=== PATIENT | female | born 1975 | race Caucasian/White ===

== ENCOUNTER 2016-11-01 07:26 | Emergency (ER) | payer OTHER ==
[2016-11-01 07:38] VITALS: BP 96/49; PULSE 98; TEMP 98.1; BMI 21.9
--- NOTE | 2016-11-01 08:22 | PDOC ---
History of Present Illness - General Chief Complaint: Respiratory Stated Complaint: COUGHING Time Seen by Provider: 11/01/16 08:15 History Source: Patient Exam Limitations: No Limitations - History of Present Illness Initial Comments: 11/01/16 08:30 Patient came with with complaints of cough that is worsening this week. States suffers badly from seasonal ALLERGIES and is been taking Zyrtec with decongestant with minimal resolved. Denies fever, denies phlegm production but states sinuses are becoming more congested and suffers from headaches now. Timing/Duration: reports: just prior to arrival, getting worse Severity: reports: mild, moderate Possible Cause: Yes: allergen exposure Associated Symptoms: reports: chest pain/soreness, cough, facial pain, lightheadedness. denies: dizziness, fever/chills Past History - Travel Traveled outside of the country in the last 30 days: No Close contact w/someone who was outside of country & ill: No - Past Medical History Allergies/Adverse Reactions: Allergies Allergy/AdvReac Type Severity Reaction Status Date / Time No Known Allergies Allergy Verified 11/01/16 07:35 Home Medications: Ambulatory Orders Albuterol Sulfate [Proventil HFA Inhaler -] 1 - 2 inh PO QID #1 inhaler Loratadine [Claritin] 10 mg PO DAILY #30 tablet 11/01/16 Prednisone [Deltasone -] 20 mg PO BID #8 tablet 11/01/16 - Surgical History Abdominal Surgery: Yes - Psycho/Social/Smoking Cessation Hx Anxiety: No Suicidal Ideation: No Smoking History: Never smoked Have you smoked in the past 12 months: No Information on smoking cessation initiated: No Hx Alcohol Use: No Drug/Substance Use Hx: No Substance Use Type: None Respiratory Specific PMHX - Complaint Specific PMHX Bronchitis: No Pneumonia: No Review of Systems - Review of Systems Able to Perform ROS?: Yes Is the patient limited Palauan proficient: Yes Constitutional: Yes: Symptoms Reported, See HPI, Malaise. No: Chills, Fever HEENTM: Yes: Symptoms Reported, See HPI, Nose Pain, Nose Congestion. No: Difficulty Swallowing Respiratory: Yes: Symptoms reported, See HPI, Cough, Shortness of Breath, Wheezing Musculoskeletal: No: Symptoms Reported Integumentary: No: Symptoms Reported All Other Systems: Reviewed and Negative *Physical Exam - Vital Signs Last Vital Signs Temp Pulse Resp BP Pulse Ox 98.1 F 98 H 18 96/49 100 11/01/16 07:36 11/01/16 07:36 11/01/16 07:36 11/01/16 07:36 11/01/16 07:36 - Physical Exam General Appearance: Yes: Nourished, Appropriately Dressed, Apparent Distress, Mild Distress HEENT: positive: Normal ENT Inspection, Normal Voice, TMs Normal (congested but landmarks easily visualized), Pharynx Normal, Rhinorrhea, Sinus Tenderness. negative: Tonsillar Exudate Neck: positive: Supple. negative: Lymphadenopathy (R), Lymphadenopathy (L) Respiratory/Chest: negative: Lungs Clear (course inspiratory and expiratory breath sounds with faint wheeze, tight) Cardiovascular: positive: Regular Rate Extremity: positive: Normal Capillary Refill, Normal Inspection Integumentary: positive: Dry, Warm, Pale Neurologic: positive: commander internal affairs II-XII NML intact, Fully Oriented, Alert, Normal Mood/ Affect, Normal Response, Motor Strength 5/5 Medical Decision Making - Medical Decision Making 11/01/16 13:35 Patient much improved after 3 DuoNeb's, and prednisone. States feels better and is ready for discharge *DC/Admit/Observation/Transfer Diagnosis at time of Disposition: Allergic rhinitis Qualifiers: Allergic rhinitis trigger: other Allergic rhinitis seasonality: unspecified seasonality Qualified Code(s): J30.89 - Other allergic rhinitis - Discharge Dispostion Disposition: HOME Condition at time of disposition: Stable Admit: No - Prescriptions Prescriptions: Loratadine [Claritin] 10 mg PO DAILY #30 tablet Prednisone [Deltasone -] 20 mg PO BID #8 tablet Albuterol Sulfate [Proventil HFA Inhaler -] 1 - 2 inh PO QID #1 inhaler - Patient Instructions Printed Discharge Instructions: DI for Allergic Rhinitis Additional Instructions: Rest, drink lots of fluids: Teas, water, soups Saltwater gargles. Consider humidifier in room at night Steamy showers/seem to face break up mucus Avoid contact with allergens, exposure to pollens, close windows on a windy day Lots of handwashing and good hygiene Continue [id number] medications for symptomatic relief- may use allergic eyedrops for itching I Continue antihistamines daily until pollen season is over; Zyrtec, Claritin, Magda during the daytime and Benadryl at nighttime as will make sleepy Tylenol or Motrin for fever and pain Continue Albuterol Nebs 4 times day for next 2 days then as needed Prednisone 40mg daily for next 4 days Followup with private physician in one to 2 days as needed Consider following up with an karate teacher/maintenance mechanic helper for skin testing and possible allergy shots Return to emergency department for worsened symptoms, fevers, dehydration - Post Discharge Activity Work/School Note: Back to Work, Parent(s) Back to Work Note
[2016-11-01] MEDS ORDERED: predniSONE 20 MG TABLET (UD) PO ONE (09:11)
[2016-11-01] MEDS ORDERED: IBUPROFEN 600 MG TABLET (FP) PO ONE ×2 (09:11→09:17)
[2016-11-01] MEDS ORDERED: predniSONE 20 MG TABLET (UD) ONE (09:13)
== END 2016-11-01 10:06 | disposition home or self-care (01) ==
LOC: JERFT 07:26
PROC: 3E0F7GC Introduction of Other Therapeutic Substance into Respiratory Tract, Via Natural or Artificial Opening (ICD-10-PCS; principal; 2016-11-01)
PROC: 3E0F7GC Introduction of Other Therapeutic Substance into Respiratory Tract, Via Natural or Artificial Opening (ICD-10-PCS; 2016-11-01)
PROC: 3E0F7GC Introduction of Other Therapeutic Substance into Respiratory Tract, Via Natural or Artificial Opening (ICD-10-PCS; 2016-11-01)
DX: J30.89 Other allergic rhinitis (principal)
CPT/HCPCS: 84703; 94640; 99281-25

== ENCOUNTER → 2017-07-08 | Day surgery (SDC) | payer OTHER ==
--- NOTE | 2017-07-08 12:40 | OP ---
DATE OF OPERATION: 07/08/2017 PREOPERATIVE DIAGNOSIS: Abnormal right mammography. POSTOPERATIVE DIAGNOSIS: Abnormal right mammography. PROCEDURE: Right stereotactic needle biopsy with clips. SURGEON: Crow Carlin MD ANESTHESIA: Local. COMPLICATIONS: None. This was a sterile procedure including clips. INDICATIONS FOR PROCEDURE: Patient had a screening mammogram as a baseline that noted loosely clustering white calcifications in the subareolar right breast slightly outer, and a recommendation made for needle biopsy for diagnosis. The procedure was discussed with her including the need for a clip. PROCEDURE IN DETAIL: Patient was brought to [facility]. Rylan Trejo, laid prone on the OR table. Using the cranial approach, the calcifications in the subareolar slightly outer, right breast, were identified. A sterile prep was obtained. A target was chosen, there was a positive stroke margin. Then, using betadine and 1% lidocaine, a petKeyCAPTCHA Suros device was used to take several cores from this area. Cores with calcifications within them. These were handled with usual calcification protocol. The clip was deployed in the area. Hemostasis was ensured with direct pressure. The incision was closed with Steri-Strips. She tolerated the procedure well and left the breast imaging center in good condition. CROW CARLIN M.D. [id number]
--- NOTE | 2017-07-10 15:53 | PATH ---
Surgical Pathology Report Patient Name: ARNALDO MADDOX [facility]. Rec. #: [id number] /Age/Gender: 1975 (Age: 42) / F Account: [id number] Location: [facility] Taken: 07/08/2017 Received: 07/08/2017 Reported: 07/10/2017 Physicians: Breonna Soto M.D. Specimen(s) Received A: RIGHT BREAST WITH CALCIFICATIONS STEREOTACTIC BIOPSY B: RIGHT BREAST WITHOUT CALCIFICATIONS STEREOTACTIC BIOPSY Clinical History Nonpalpable lesion Mammographic findings: Microcalcification, suspicious Final Diagnosis A. BREAST, RIGHT, WITH CALCIFICATIONS, STEREOTACTIC BIOPSY: BENIGN BREAST TISSUE SHOWING FIBROCYSTIC CHANGES INCLUDING MICROCYST FORMATION WITH APOCRINE METAPLASIA AND STROMAL FIBROSIS. FEW CALCIFICATIONS ARE PRESENT IN ASSOCIATION WITH CYST CONTENTS. B. BREAST, RIGHT, WITHOUT CALCIFICATIONS, STEREOTACTIC BIOPSY: BENIGN BREAST TISSUE SHOWING FIBROCYSTIC CHANGES INCLUDING CYSTIC APOCRINE METAPLASIA AND STROMAL FIBROSIS. FEW CALCIFICATIONS ARE PRESENT IN ASSOCIATION WITH CYST CONTENTS. Electronically Signed Deepthi Lacey M.D. Gross Description A. Received in formalin labeled "right breast with calcifications," are 3 macias-yellow, cylindrical portions of fibroadipose tissue ranging from 1.4-2.1 cm in length and averaging 0.3 cm in diameter. The specimens are submitted in toto in one cassette. B. Received in formalin labeled "right breast without calcifications," are 4 macias-yellow, cylindrical portions of fibroadipose tissue ranging from 1.3-2.0 cm in length and averaging 0.2 cm in diameter. The specimens are submitted in toto in one cassette. Time to formalin fixation: 5 minutes Total formalin fixation time: Approximately 8 hours. 07/08/2017 [facility]07/08/2017
== END | disposition home or self-care (01) ==
LOC: FMAMMOTONE 08:39
PROVIDERS: ATTEND Surgery
PROC: 0HBT3ZX Excision of Right Breast, Percutaneous Approach, Diagnostic (ICD-10-PCS; principal; 2017-07-08)
DX: N60.11 Diffuse cystic mastopathy of right breast (principal); N60.31 Fibrosclerosis of right breast; N64.89 Other specified disorders of breast; R92.8 Other abnormal and inconclusive findings on diagnostic imaging of breast
CPT/HCPCS: 19081; 87899; A4648

== ENCOUNTER 2018-01-08 20:38 | Emergency (ER) | payer SELFPAY ==
--- NOTE | 2018-01-08 20:45 | PDOC ---
Rapid Medical Evaluation Time Seen by Provider: 01/08/18 20:40 Medical Evaluation: Allergies Allergy/AdvReac Type Severity Reaction Status Date / Time No Known Allergies Allergy Verified 11/01/16 07:35 01/08/18 20:41 Pt. presents to the ED for a headache starting today. Pt states the pain started behind her L eye. The headache is made worse with light. Currently on her menstrual cycle. Exam: Pt wearing sunglasses. AAOx3, no gross neuro deficits Orders: IV insert, Urine Pt to proceed to the ED for further evaluation Discharge Disposition - Diagnosis Headache - Referrals - Patient Instructions - Post Discharge Activity
[2018-01-08 20:46] VITALS: BP 116/57; PULSE 82; TEMP 97.9; BMI 23.4
[2018-01-08] MEDS ORDERED: SUMATRIPTAN SUCCINATE 6 MG/0.5 ML VIAL SQ ONE (21:28)
[2018-01-08] MEDS ORDERED: SUMATRIPTAN SUCCINATE 6 MG/0.5 ML VIAL ONE (21:34)
--- NOTE | 2018-01-08 21:41 | PDOC ---
History of Present Illness - General Chief Complaint: Eye Problem Stated Complaint: HEADACHE, EYE PAIN Time Seen by Provider: 01/08/18 20:40 History Source: Patient, Gyn Used (foreign language interpreter# [id number]) Exam Limitations: Clinical Condition - History of Present Illness Initial Comments: 01/08/18 21:35 Patient with no significant past medical history present with complain of pain and redness to right eye for 3 days now headaches. Patient reported the pain started as mild pain behind her right eye which is progressively getting worse and she called her PCP and PCP could not see her until week's time. Patient did not take anything for her symptoms. Patient denies nausea vomiting, dizziness, loss of consciousness, spinning sensation, ear pain, fever or chills. Denies any other symptoms Timing/Duration: other (3 days) Past History - Past Medical History Allergies/Adverse Reactions: Allergies Allergy/AdvReac Type Severity Reaction Status Date / Time No Known Allergies Allergy Verified 11/01/16 07:35 Home Medications: Ambulatory Orders Ibuprofen [Advil -] 200 mg PO QID 01/08/18 Ketotifen Fumarate [Zaditor] 5 ml OP BID 5 Days #1 bottle 01/08/18 Sumatriptan Succinate [Imitrex] 25 mg PO TID PRN #12 tablet 01/08/18 COPD: No - Surgical History Abdominal Surgery: Yes - Suicide/Smoking/Psychosocial Hx Smoking History: Never smoked Have you smoked in the past 12 months: No Hx Alcohol Use: No Drug/Substance Use Hx: No Substance Use Type: None Review of Systems - Review of Systems Able to Perform ROS?: Yes Is the patient limited Syriac proficient: No Constitutional: No: Chills, Diaphoresis, Fever, Loss of Appetite, Malaise, Night Sweats, Weakness, Weight Stable, Unintentional Wgt. Loss, Unexplained wgt Loss, Other HEENTM: Yes: Eye Pain (right eye), Blurred Vision (right eye). No: Tearing, Recent change in vision, Double Vision, Cataracts, Ear Pain, Ocular Prothesis, Ear Discharge, Nose Pain, Nose Congestion, Tinnitus, Nose Bleeding, Hearing Loss , Throat Pain, Throat Swelling, Mouth Pain, Dental Problems, Difficulty Swallowing, Mouth Swelling, Other Respiratory: No: Cough, Orthopnea, Shortness of Breath, SOB with Exertion, SOB at Rest, Stridor, Wheezing, Productive cough, Hemoptysis, Other Cardiac (ROS): No: Chest Pain, Edema, Irregular Heart Rate, Lightheadedness, Palpitations, Syncope, Chest Tightness, Other ABD/GI: No: Abdominal Distended, Abd. Pain w/ defecation, Blood Streaked Bowels , Constipated, Diarrhea, Difficulty Swallowing, Nausea, Poor Appetite, Poor Fluid Intake, Rectal Bleeding, Vomiting, Indigestion, Abdominal cramping, Tarry Stools, Other Musculoskeletal: No: Back Pain, Gout, Joint Pain, Joint Swelling, Muscle Pain, Muscle Weakness, Neck Pain, Joint Stiffness, Other All Other Systems: Reviewed and Negative *Physical Exam - Vital Signs Last Vital Signs Temp Pulse Resp BP Pulse Ox 97.9 F 82 18 116/57 99 01/08/18 20:40 01/08/18 20:40 01/08/18 20:40 01/08/18 20:40 01/08/18 20:40 - Physical Exam Comments: 01/08/18 21:38 GENERAL: Well developed, well nourished. Awake and alert. No acute distress. HEENT: injected right conjunctiva are tearing Normocephalic, atraumatic. PERRLA, EOMI. No left conjunctival pallor. Sclera are non-icteric. Moist mucous membranes. Oropharynx is clear. NECK: Supple. Full ROM. No JVD. Carotid pulses 2+ and symmetric, without bruits. No thyromegaly. No lymphadenopathy. CARDIOVASCULAR: Regular rate and rhythm. No murmurs, rubs, or gallops. Distal pulses are 2+ and symmetric. PULMONARY: No evidence of respiratory distress. Lungs clear to auscultation bilaterally. No wheezing, rales or rhonchi. ABDOMINAL: Soft. Non-tender. Non-distended. No rebound or guarding. No organomegaly. Normoactive bowel sounds. MUSCULOSKELETAL Normal range of motion at all joints. No bony deformities or tenderness. No CVA tenderness. EXTREMITIES: No cyanosis. No clubbing. No edema. No calf tenderness. SKIN: Warm and dry. Normal capillary refill. No rashes. No jaundice. NEUROLOGICAL: Alert, awake, appropriate. Cranial nerves 2-12 intact. No deficits to light touch and temperature in face, upper extremities and lower extremities. No motor deficits in the in face, upper extremities and lower extremities. Normoreflexic in the upper and lower extremities. Normal speech. Toes are down- going bilaterally. Gait is normal without ataxia. PSYCHIATRIC: Cooperative. Good eye contact. Appropriate mood and affect. General Appearance: Yes: Nourished, Appropriately Dressed. No: Apparent Distress ED Treatment Course - ADDITIONAL ORDERS Additional order review: Laboratory Results 01/08/18 20:58 Urine HCG, Qual Negative Medical Decision Making - Medical Decision Making 01/08/18 21:40 Patient withhas past medical history presenting with complain of right eye redness and pain and headache for 3 days. Symptoms likely cluster headache and Imitrex 6 mg IM given for headache. Patient will be observed for 20 minutes before discharge on Imitrex and eyedrops with ophthalmology follow-up 01/08/18 22:24 Patient symptoms improved after Imitrex is medication and observation for 30 minutes. Patient with no more pain in the eye. Patient will be discharged home on Imitrex and eyedrops with ophthalmology follow-up *DC/Admit/Observation/Transfer Diagnosis at time of Disposition: Headache Qualifiers: Headache type: cluster Headache chronicity pattern: episodic headache Intractability: not intractable Qualified Code(s): G44.019 - Episodic cluster headache, not intractable - Discharge Dispostion Disposition: HOME Condition at time of disposition: Stable Decision to Admit order: No - Prescriptions Prescriptions: Ketotifen Fumarate [Zaditor] 5 ml OP BID 5 Days #1 bottle Sumatriptan Succinate [Imitrex] 25 mg PO TID PRN #12 tablet PRN Reason: headache - Referrals Referrals: Deric Awad MD [Non Staff, Medical] - - Patient Instructions Printed Discharge Instructions: Cluster Headache, DI for Cluster Headache Additional Instructions: take medication as prescribed. follow-up with ophthalmology as soon as possible Print Language: URDU - Post Discharge Activity
[2018-01-08] MEDS ORDERED: ONDANSETRON *ODT* 4 MG TABLET ONE (22:28)
[2018-01-08] MEDS ORDERED: ONDANSETRON *ODT* 4 MG TABLET SL ONE (22:31)
== END 2018-01-08 22:35 | disposition home or self-care (01) ==
LOC: JERFT 20:38
PROC: 3E023GC Introduction of Other Therapeutic Substance into Muscle, Percutaneous Approach (ICD-10-PCS; principal; 2018-01-08)
DX: G44.019 Episodic cluster headache, not intractable (principal)
CPT/HCPCS: 84703; 99281-25; Q0162

== ENCOUNTER 2020-03-27 15:48 | Emergency (ER) | payer SELFPAY ==
--- NOTE | 2020-03-27 15:53 | PDOC ---
Rapid Medical Evaluation Time Seen by Provider: 03/27/20 15:50 Medical Evaluation: Allergies Allergy/AdvReac Type Severity Reaction Status Date / Time No Known Allergies Allergy Verified 11/01/16 07:35 03/27/20 15:51 44 year old female no phmx complaining of chest pain and SOB. PE CTA RRR Plan EKG Labs Pt to precede to ED for further treatment
[2020-03-27 15:55] VITALS: BP 93/52; PULSE 75; TEMP 97.7; BMI 24.4
--- OUTSIDE RECORDS SUMMARY | 2020-03-27 16:20 | XMS ---
:1975 Author Organization [facility] Care Team Providers Name Role Phone PETER [employer] AND WATCH HANDS MOUNTER Unavailable PETER [employer] W[employer] HAND[employer] MOUNTER Unavailable PETER CL[employer] AND WATCH HANDS MOUNTER Unavailable PETER CLOCK AND WATCH HANDS MOUNTER Unavailable PETER CLOCK AND WATCH HANDS MOUNTER Unavailable OYEKOLA CANVAS MARKER Unavailable OYEKOLA CANVAS MARKER Unavailable OYEKOLA CANVAS MARKER Unavailable OYEKOLA CANVAS MARKER Unavailable Vilas DPM Unavailable Vilas DPM Unavailable SHASTA TALAVERA Unavailable Grullon Unavailable Re-disclosure Warning The records that you are about to access may contain information from federally- assisted alcohol or drug abuse programs. If such information is present, then the following federally mandated warning applies: This information has been disclosed to you from records protected by federal confidentiality rules (42 CFR part 2). The federal rules prohibit you from making any further disclosure of this information unless further disclosure is expressly permitted by the written consent of the person to whom it pertains or as otherwise permitted by 42 CFR part 2. A general authorization for the release of medical or other information is NOT sufficient for this purpose. The Federal rules restrict any use of the information to criminally investigate or prosecute any alcohol or drug abuse patient.The records that you are about to access may contain highly sensitive health information, the redisclosure of which is protected by Article 27-F of the [facility] [place] [facility] law. If you continue you may haveaccess to information: Regarding HIV / AIDS; Provided by facilities licensed or operated by the [facility] Office of Mental Health; or Provided by the [facility] Office for People With Developmental Disabilities. If such information is present, then the following [facility] mandated warning applies: This information has been disclosed to you from confidential records which are protected by state law. State law prohibits you from making any further disclosure of this information without the specific written consent of the person to whom it pertains, or as otherwise permitted by law. Any unauthorized further disclosure in violation of state law may result in a fine or detention sentence or both. A general authorization for the release of medical or other information is NOT sufficient authorization for further disclosure. Allergies and Adverse Reactions Type Description Substance Reaction Status Data Source(s ) Allergy to No Known Allergies No known GREENW AY ([facility] substance allergies [facility] ) Allergy to No Known Allergies No known GREENW AY ([facility] substance allergies [facility] ) Allergy to No Known Allergies No known GREENW AY ([facility] substance allergies [facility] ) Allergy to No Known Allergies No known GREENW AY ([facility] substance allergies [facility] ) Allergy to No Known Allergies No known GREENW AY ([facility] substance allergies [facility] ) Allergy to No Known Allergies No known GREENW AY ([facility] substance allergies [facility] ) Allergy to No Known Allergies No known GREENW AY ([facility] substance allergies [facility] ) Allergy to No Known Allergies No known GREENW AY ([facility] substance allergies [facility] ) Encounters Encounter Providers Location Date Indications Data Source(s) Outpatient< Attender: 11/16/ HypothyroidismAsthmaHype rlipidemia KEYON td 2019 (Terrance Quintana ID="encount [employer]TER 04:45: Neighborhood erTypeDescr 00 PM Health iptionID0"> EDT - Center) *Phone*</td 11/16/ ><td>[id number] Chhaya PETER 11:59: CLOCK AND WATCH HANDS MOUNTER</td><td 00 PM > EDT </td><td></t d><td><cont ent ID="encount erDiagnosis ID0-0">Asth ma</content >, <content ID="encount erDiagnosis ID0-1">Hype rlipidemia< /content>, <content ID="encount erDiagnosis ID0-2">Hypo thyroidism< /content></ td> Hypothyroidism Asthma Hyperlipidemia Outpatient<td Attender: [facility] 11/14/2019 Routine History and GR EENWAY ID="encounterTypeDescriptionID1">COMPLETE PHYSICAL CANDACE [facility] 01:30:00 PM Physical Adult (18 - ([place] EXAM</td><td>CANDACE [employer]ER [employer]TER</td><td>[place]uy PETER [employer] MOUNTER Cent er EDT - 65 Yrs)Preventive Med [facility]</td><td>11/14/2019</td><td><content 11/14/2019 Standardized Health ID="encounterDiagnosisID1-0">Preventive Med 02: 49:20 PM Depression Screening: Center) Standardized Depression Screening: Negative For EDT Negative For Symptoms</content>, <content Symptom sRoutine ID="encounterDiagnosisID1-1">Routine History and History and Physical Physical Adult (18 - 64 Yrs)</content>, <content Adult (18 - 64 ID="encounterDiagnosisID1-2">Asthma</content></td> Yrs)Preventive Med Standardized Depression Screening: Negative For SymptomsAsthmaAsthma Routine History and Physical Adult (18 - 64 Yrs) Preventive Med Standardized Depression S creening: Negative For Symptoms Routine History and Physical Adult (18 - 64 Yrs) Preventive Med Standardized Depression S creening: Negative For Symptoms Asthma Asthma Outpatient<td Attender: Karlene 08/16/2019 MILPITAS ID="encounterTypeDescriptionID2">NUTRITION [facility] 01:0 0:00 PM ([place] INITIAL VISIT</td><td>[facility]</td><td>[facility] 08/16/[address] [place] [address] Center</td><td>08/16/2019</td><td></td> 03:02:1 5 PM [place]) EST Outpatient<td Attender: Karlene 07/28/2019 A MILPITAS ID="encounterTypeDescriptionID3">OFFICE [facility] 03:30:0 0 PM c ([place] VISIT</td><td>Demetria Thurman [facility] Health EST - q Neighborhood DP</td><td>[facility] 07/28/2019 u [facility] Center</td><td>07/28/2019</td><td><content 03:3 0:07 PM i [place]) ID="encounterDiagnosisID3-0">Tendonitis EST r Achilles</content>, <content e ID="encounterDiagnosisID3-1">Acquired d Deformity - Unequal Limb D Length</content></td> e f o r m i t y - U n e q u a l L i m b L e n g t h T e n d o n i t i s A c h i l l e s A c q u i r e d D e f o r m i t y - U n e q u a l L i m b L e n g t h T e n d o n i t i s A c h i l l e s A c q u i r e d D e f o r m i t y - U n e q u a l L i m b L e n g t h T e n d o n i t i s A c h i l l e s A c q u i r e d D e f o r m i t y - U n e q u a l L i m b L e n g t h T e n d o n i t i s A c h i l l e s Acquired Deformity - Unequal Limb Length Tendonitis Achilles Acquired Deformity - Unequal Limb Length Tendonitis Achilles Acquired Deformity - Unequal Limb Length Tendonitis Achilles Acquired Deformity - Unequal Limb Length Tendonitis Achilles Outpatient<td ID="encounterTypeDescriptionID4">OFFICE Attender: Karlene 07/25/2019 OverweightUrinary Tract InfectionOverweightUrinary Tra ct [place] VISIT</td><td>KASANDRA MONTENEGRO CANVAS MARKER</td><td>[facility] 03:30:00 PM InfectionOverweightUrinary Tract InfectionOverweightUr inary Tract ([facility] EST - InfectionOv erweightUrinary Tract InfectionHypothyroidism SubclinicalHypothyroidism [facility]</td><td>07/25/2019</td><td><content CANVAS MARKER Center 07/25/2019 SubclinicalHypothyroidism SubclinicalHypothyroidism SubclinicalHypothyroidism Health ID="encounterDiagnosisID4-0">Hypothyroidism 04:22:20 PM SubclinicalHyperlipidemiaHyperlipidemiaHyperlipidemiaHyperlipidemiaHyperlipidemi Center) Subclinical</content>, <content EST ID="encounterDiagnosisID4-1">Urinary Tract Infection</content>, <content ID="encounterDiagnosisID4-2">Hyperlipidemia</content>, <content ID="encounterDiagnosisID4-3">Overweight</content></td> Overweight Urinary Tract Infection Overweight Urinary Tract Infection Overweight Urinary Tract Infection Overweight Urinary Tract Infection Overweight Urinary Tract Infection Hypothyroidism Subclinical Hypothyroidism Subclinical Hypothyroidism Subclinical Hypothyroidism Subclinical Hypothyroidism Subclinical Hyperlipidemia Hyperlipidemia Hyperlipidemia Hyperlipidemia Hyperlipidemia Outpatient<td Attender: [place] 07/20/2019 KEYON ID="encounterTypeDescriptionID5">*OUTREACH*</td><td>[facility] 02:57:00 PM ([facility]</td><td>[facility] ES T - [facility]</td><td>07/20/2019</td><td></td> [facility] [address] [place] [address] 11:59:00 PM Center) EST Outpatient<td Attender: [facility] 07/18/2019 KEYON ID="encounterTypeDescriptionID6">XRAY</td><td>TANYA Quintana 11:00:00 AM ([place] MD</td><td>[facility] SHASTA TALAVERA [facility]</td><td>07/18/2019</td><td></td> [facility] 01:46:41 PM Center) EST Outpatient<td Attender: Karlene 07/15/2019 A MILPITAS ID="encounterTypeDescriptionID7">WALKINS</td><td>KASANDRA RM [facility] 04:00:00 PM s ([facility] CANVAS MARKER</td><td>[facility] T - t [facility]</td><td>07/15/2019</td><td><content CANVAS MARKER Center 06/17 h Health ID="encounterDiagnosisID7-0">Arthralgia - Right 04:51:01 PM Center) Ankle</content>, <content EST a ID="encounterDiagnosisID7-1">Overweight</content>, <content M ID="encounterDiagnosisID7-2">Asthma Mild i Intermittent</content></td> l d I n t e r m i t t e n t O v e r w e i g h t A r t h r a l g i a - R i g h t A n k l e A s t h m a M i l d I n t e r m i t t e n t O v e r w e i g h t A r t h r a l g i a - R i g h t A n k l e A s t h m a M i l d I n t e r m i t t e n t O v e r w e i g h t A r t h r a l g i a - R i g h t A n k l e A s t h m a M i l d I n t e r m i t t e n t O v e r w e i g h t A r t h r a l g i a - R i g h t A n k l e A s t h m a M i l d I n t e r m i t t e n t O v e r w e i g h t A r t h r a l g i a - R i g h t A n k l e A s t h m a M i l d I n t e r m i t t e n t O v e r w e i g h t A r t h r a l g i a - R i g h t A n k l e A s t h m a M i l d I n t e r m i t t e n t O v e r w e i g h t A r t h r a l g i a - R i g h t A n k l e A s t h m a M i l d I n t e r m i t t e n t O v e r w e i g h t A r t h r a l g i a - R i g h t A n k l e Asthma Mild Intermittent Overweight Arthralgia - Right Ankle Asthma Mild Intermittent Overweight Arthralgia - Right Ankle Asthma Mild Intermittent Overweight Arthralgia - Right Ankle Asthma Mild Intermittent Overweight Arthralgia - Right Ankle Asthma Mild Intermittent Overweight Arthralgia - Right Ankle Asthma Mild Intermittent Overweight Arthralgia - Right Ankle Asthma Mild Intermittent Overweight Arthralgia - Right Ankle Asthma Mild Intermittent Overweight Arthralgia - Right Ankle Medications Medication Brand Start Product Dose Route Administrative Pharmacy [facility] Indications Reaction Description Data Name Date Form Instructions Instructions Source(s) Prednisone predni 11/13/ UNIT 1 active predniSO NE KEYON 5 MG Oral SONE 2019 ([place] Tablet 5MG 12:00: [place] predniSONE Oral 00 AM Neighbor ho 5MG Oral Tablet EDT od Health Tablet Center) Albuterol Albute 11/13/ NEBULE complet Albute rol KEYON 0.83 MG/ML rol 2019 DOSING ed Sulfate (Alicia nt Inhalant Sulfat 12:00: UNIT Mariano Solution e (2.5 00 AM Neighbor ho Albuterol MG/3ML EDT od Healt h Sulfate )0.083 Center) (2.5 % IN MG/3ML)0.08 NEBU 3% IN NEBU Medication administered onsite [facility]:[id number] Simvastatin Simvastatin 07/25/2019 UNIT 1 active Simvastatin KEYON 10 MG Oral 10MG Oral 12:00:00 AM ([place] Tablet Tablet EST [facility] d Simvastatin Health 10MG Oral Center) Tablet Macrobid Macrobid 07/25/2019 UNIT 1 completed M acrobid KEYON 100MG Oral 100MG Oral 12:00:00 AM ([place] Capsule Capsule EST [facility]) Ibuprofen Ibuprofen 07/15/2019 UNIT 1 completed Ibuprofen KEYON 400 MG Oral 400MG Oral 12:00:00 AM ([place] Tablet Tablet EST Neighborhoo d Ibuprofen Health 400MG Oral Center) Tablet Ventolin HFA Ventolin HFA 07/15/2019 INHALATI active Ventolin KEYON 108 (90 108 (90 12:00:00 AM ON (M ount [place] [facility])MCG/ACT Base)MCG/ACT EST DOSING [facility] Inhalation Inhalation UNIT [facility] Aerosol Aerosol [place]) Solution Solution Ventolin HFA Ventolin HFA 07/15/2019 INHALATI suspended Ventolin KEYON 108 (90 108 (90 12:00:00 AM ON (M ount [place] Base)MCG/ACT Base)MCG/ACT EST DOSING [facility] Inhalation Inhalation UNIT [facility] Aerosol Aerosol [place]) Solution Solution Ventolin HFA Ventolin HFA 05/10/2018 INHALATI suspended Ventolin KEYON 108 (90 108 (90 12:00:00 AM ON (M ount [place] Base)MCG/ACT Base)MCG/ACT EST DOSING [facility] Inhalation Inhalation UNIT [facility] Aerosol Aerosol [place]) Solution Solution Insurance Providers Payer name Policy type Policy ID Covered Covered constitution party's Policy P surya / Coverage constitution party ID relationship to Santana Inf ormation type santana SELF PAY SP INSURANCE Medicaid [id number] Regular Clinic Visit Surgeries/Procedures Procedure Description Date Indications Data Source(s) NUTRITION THERAPY NUTRITION THERAPY 08/16/2019 [facility] ([facility] INITIAL INITIAL 12:00:00 AM [facility]) No prior serious No prior serious 07/26/2019 MANDIIA Y ([facility] illness illness 12:00:00 AM [facility]) TSH-THYROID TSH-THYROID 07/25/2019 [place] ([facility] STIMULATING STIMULATING 12:00:00 AM [facility]) THYROXINE FREE (FT4) THYROXINE FREE (FT4) 07/25/2019 [place] ([facility] 12:00:00 AM [facility]) Bmi is documented BMI > NORMAL 07/25/2019 MILP[place]AS ([facility] above normal DOCUMENTED W F/U 12:00:00 AM [facility] hboood parameters and a PLAN [facility] er) follow-up plan is documented URINALYSIS URINALYSIS 07/25/2019 MILPITAS ([facility] MICROSCOPIC MICROSCOPIC 12:00:00 AM [facility]) Date of last Date of last 07/18/2019 [place]AS ([facility] menstruation menstruation 12:00:[address] [facility] 07/10/2019 07/10/2019 [facility]) Xray Ankle 3 views Xray Ankle 3 views 07/18/2019 GRE ENWAY ([facility] 12:00:00 AM [facility]) No prior serious No prior serious 07/18/2019 GREENIA Y ([facility] illness illness 12:00:00 AM [facility]) TSH-THYROID TSH-THYROID 07/15/2019 KEYON ([facility] STIMULATING STIMULATING 12:00:00 AM [facility]) THYROXINE FREE (FT4) THYROXINE FREE (FT4) 07/15/2019 [place] ([facility] 12:00:00 AM [facility]) [id number] 07/15/2019 [facility] ([facility] 12:00:00 AM [facility]) HEMOGLOBIN A1C HEMOGLOBIN A1C 07/15/2019 [place] ([facility] 12:00:00 AM [facility]) LIPID PANEL LIPID PANEL 07/15/2019 MIL[place]AS ([facility] 12:00:00 AM [facility]) URINALYSIS URINALYSIS 07/15/2019 [place]AS ([facility] MICROSCOPIC MICROSCOPIC 12:00:00 AM [facility]) METABOLIC PANEL METABOLIC PANEL 07/15/2019 MIL[place]AS ([facility] COMPREHE COMPREHE 12:00:00 AM [facility]) Results ID Date Data Source [id number] 11/14/2019 03:01:00 PM EDT [facility] Name Value Range Interpretation Description Data Sup porting Code Source(s) Document(s ) SARS [facility] CORONAVIRUS 2 RNA This lab was ordered by [facility] [employer] and reported by [facility]. ID Date Data Source [id number] 07/20/2019 03:05:33 PM EST [facility] ([place] [id number] [facility]) Name Value Range Interpretation Description Data Source(s ) Supporting Code Document(s ) No Results No Results No Results [place] ([facility] Recorded For [facility]) ID Date Data Source [id number] 07/18/2019 05:49:14 PM EST [facility] ([place] [id number] [facility]) Name Value Range Interpretation Description Data Source(s ) Supporting Code Document(s ) No Results No Results No Results KEYON ([facility] Recorded For [facility]) ID Date Data Source [id number] 07/18/2019 02:30:14 PM EST GREENWA Y ([place] [id number] [facility]) Name Value Range Interpretation Description Data Source(s ) Supporting Code Document(s ) No Results No Results No Results KEYON ([facility] Recorded [facility]) ID Date Data Source [id number] 07/18/2019 09:10:00 AM EST [place] ([facility]) Name Value Range Interpretation Description Data Source(s ) Supporting Code Document(s ) Thyrotropin 5.180 Above high normal TSH KEYON ( [facility] [Units/volume] uIU/mL [place] in Serum or [facility] Plasma [facility]) Detection limit <= 0.05 mIU/L ID Date Data Source [id number] 07/18/2019 09:10:00 AM EST KEYON ([facility]) Name Value Range Interpretation Description Data Source(s ) Supporting Code Document(s ) Thyroxine 1.02 T4,Free(Direct KEYON ([facility] (T4) free ng/dL ) Mariano [Mass/volume Neighborhood ] in [facility]) or Plasma ID Date Data Source [id number] 07/18/2019 09:10:00 AM EST [place]ON ([facility]) Name Value Range Interpretation Description Data Source(s ) Supporting Code Document(s ) Hemoglobin 5.3 % Hemoglobin A1c KEYON (Moun t A1c/Hemoglobi Mariano n.total in [facility] Blood [facility]) Note: Prediabetes: 5.7 - 6.4 Diabetes: >6.4 Glycemic control for adults with diabetes: <7.0 ID Date Data Source [id number] 07/18/2019 09:10:00 AM EST [place] ([facility]) Name Value Range Interpretation Description Data Source(s ) Supporting Code Document(s ) Cholesterol 234 Above high Cholesterol, KEYON [Mass/volume] mg/dL normal Total ([place] in Serum or [facility]) Laboratory N/A Comment: KEYON comment [Text] (Terrance Quintana in Report Neighborhood Narrative [facility]) Cholesterol in 48 HDL Cholesterol KEYON HDL mg/dL ([place] [Mass/volume] Neighborhood in Serum or Health Center) Plasma Triglyceride 205 Above high Triglycerides KEYON [Mass/volume] mg/dL normal ([place] in Serum or Neighborhood [facility]) Cholesterol in 3.0 LDL/HDL Ratio KEYON LDL/Cholestero ratio ([place] l in HDL [Mass Neighborhood Ratio] in Health Center) Serum or Plasma Note: LDL/HDL Ratio Men Women 1/2 Avg.Risk 1.0 1.5 Avg.Risk 3.6 3.2 2X Avg.Risk 6.2 5.0 3X Avg.Risk 8.0 6.1 Cholesterol in LDL 145 mg/dL Above high LDL Cholesterol GREE NWAY ([facility] [Mass/volume] in normal Calc Mariano [facility] orhood Serum or Plasma by Health Cent er) calculation Cholesterol in VLDL 41 mg/dL Above high VLDL Cholesterol GR EENWAY ([facility] [Mass/volume] in normal Gregorio Mariano [facility] [place] Serum or Plasma by Health Cent er) calculation ID Date Data Source [id number] 07/18/2019 09:10:00 AM EST KEYON (Alicia nt [facility]) Name Value Range Interpretation Description Data Source(s ) Supporting Code Document(s ) Calcium 9.4 Calcium KEYON ([facility] [Mass/volum mg/dL Mariano e] in Serum [facility] or [facility]) Glucose 84 mg/dL Glucose KEYON ([facility] [Mass/volum Mariano e] in Serum [facility] or [facility]) Urea 16 mg/dL BUN KEYON ([facility] nitrogen [place]iano [Mass/volum Neighborhood e] in [facility] [place]) or Plasma Protein 7.5 g/dL Protein, Total KEYON ([facility] [Mass/volum Mariano e] in Serum Neighborhood or [facility]) Albumin 4.3 g/dL Albumin KEYON ([facility] [Mass/volum Mariano e] in Serum [facility] or [facility]) Note: Ple ase note reference interval change Potassium 4.7 mmol/L Potassium KEYON ([facility] [Moles/volume] in [place] Serum or Plasma [facility] Health [place]) Alkaline phosphatase 92 IU/L Alkaline KEYON ([facility] [Enzymatic Phosphatase [place]iano activity/volume] in [facility] Serum or Plasma Health [place]) Aspartate 21 IU/L AST (SGOT) KEYON ([facility] aminotransferase [place] [Enzymatic Neighborhood activity/volume] in [facility]) Serum or Plasma Bilirubin.total 0.4 mg/dL Bilirubin, Total GREENWA Y ([facility] [Mass/volume] in Serum [place] or [facility]) Chloride 100 mmol/L Chloride KEYON ([facility] [Moles/volume] in [facility]) Alanine 21 IU/L ALT (SGPT) KEYON ([facility] aminotransferase [place] [Enzymatic [facility] activity/volume] in [facility] ter) Serum or Plasma Sodium [Moles/volume] 139 mmol/L Sodium GREENWA Y ([facility] in Serum or Plasma [facility]) Creatinine 0.66 mg/dL Creatinine KEYON ([facility] [Mass/volume] in Serum [place] or [facility]) Carbon dioxide, total 25 mmol/L Carbon Dioxide, GR EENWAY ([facility] [Moles/volume] in Total [facility] or [facility]) Globulin [Mass/volume] 3.2 g/dL Globulin, Total G REENWAY ([facility] in Serum by [facility]) Albumin/Globulin [Mass 1.3 A/G Ratio GREENWA Y ([facility] Ratio] in Serum or [facility]) Urea 24 Above high BUN/Creatinine KEYON (Moun t nitrogen/Creatinine normal Ratio [place] [Mass Ratio] in Serum [facility]) eGFR If NonAfricn Am 109 eGFR If NonAfricn G REENWAY ([facility] mL/min/1.73 Am [facility]) eGFR If Africn Am 125 eGFR If Africn Am GREE NWAY ([facility] mL/min/1.73 [facility]) Procedure Vital Signs ID Date Data Source [id number] Name Value Range Interpretation Code Description Data Source(s) PhenX - pain, 0 0 KEYON ([facility] abdominal - type [facility] Health and [facility]) protocol Complete Physical Body surface area Derived from 1.49 m2 1.49 m2 KEYON ([facility]) Complete Physical Body mass index (BMI) 24.4 kg/m2 24.4 kg/m2 GRE ENWAY ([place] [Ratio] [facility] Complete Physical Body weight 121 [lb_av] 121 [lb_av] KEYON ([facility]) Complete Physical Body height 59 [in_us] 59 [in_us] KEYON ([facility]) Complete Physical Body temperature 98.7 [degF] 98.7 [degF] GREENW AY ([facility]) Complete Physical Heart rate rhythm 1 1 GREENWA Y ([facility] [facility]) Complete Physical Heart rate 80 /min 80 /min KEYON ([facility]) Complete Physical Diastolic blood pressure 58 mm[Hg] 58 mm[Hg] KEYON ([facility]) Complete Physical Systolic blood pressure 87 mm[Hg] 87 mm[Hg] G REENWAY ([facility]) Complete Physical Body surface area Derived 1.51 m2 1.51 m2 KEYON ([facility]) Body mass index (BMI) 25.2 kg/m2 25.2 kg/m2 GRE ENWAY ([place] [[facility]] [facility]) Body weight 125 [lb_av] 125 [lb_av] KEYON ([facility]) Body height 59 [in_us] 59 [in_us] KEYON ([facility]) PhenX - pain, abdominal - 0 0 KEYON ([place] type and intensity [facility]) Patient is here to see the Cuff Setter Overlock. Body height 59 [in_us] 59 [in_us] KEYON ([facility]) Patient is here to see the Cuff Setter Overlock. PhenX - pain, abdominal - type and 6 6 KEYON ([facility]) Pt presents today for labs and right ank le XR results Body surface area Derived from 1.50 m2 1.50 m2 KEYON ([facility]) Pt presents today for labs and right ank le XR results Body mass index (BMI) 25.0 kg/m2 25.0 kg/m2 GRE ENWAY ([place] [[facility]] [facility]) Pt presents today for labs and right ank le XR results Body weight 124 [lb_av] 124 [lb_av] KEYON ([facility]) Pt presents today for labs and right ank le XR results Body height 59 [in_us] 59 [in_us] KEYON ([facility]) Pt presents today for labs and right ank le XR results Body temperature 98 [degF] 98 [degF] KEYON ([facility]) Pt presents today for labs and right ank le XR results Heart rate 76 /min 76 /min KEYON ([facility]) Pt presents today for labs and right ank le XR results Diastolic blood pressure 57 mm[Hg] 57 mm[Hg] KEYON ([facility]) Pt presents today for labs and right ank le XR results Systolic blood pressure 94 mm[Hg] 94 mm[Hg] G REENWAY ([facility]) Pt presents today for labs and right ank le XR results PhenX - pain, abdominal - type and 5 5 KEYON ([facility]) pt comes for routine examination ( thyro id)pt feels rigth ankle one week ago Body surface area Derived from 1.53 m2 1.53 m2 KEYON ([facility]) pt comes for routine examination ( thyro id)pt feels rigth ankle one week ago Body mass index (BMI) 25.9 kg/m2 25.9 kg/m2 GRE ENWAY ([place] [[facility]] [facility]) pt comes for routine examination ( thyro id)pt feels rigth ankle one week ago Body weight 128 [lb_av] 128 [lb_av] KEYON ([facility]) pt comes for routine examination ( thyro id)pt feels rigth ankle one week ago Body height 59 [in_us] 59 [in_us] KEYON ([facility]) pt comes for routine examination ( thyro id)pt feels rigth ankle one week ago Body temperature 97.9 [degF] 97.9 [degF] GREENW AY ([facility]) pt comes for routine examination ( thyro id)pt feels rigth ankle one week ago Heart rate 69 /min 69 /min KEYON ([facility]) pt comes for routine examination ( thyro id)pt feels rigth ankle one week ago Diastolic blood pressure 64 mm[Hg] 64 mm[Hg] KEYON ([facility]) pt comes for routine examination ( thyro id)pt feels rigth ankle one week ago Systolic blood pressure 94 mm[Hg] 94 mm[Hg] G REENWAY ([facility]) pt comes for routine examination ( thyro id)pt feels rigth ankle one week ago Patient Treatment Plan of Care Planned Activity Planned Date Details Description Data Source (s) Prednisone 5 MG Oral 11/14/2019 12:00:00 KEYON ([place] Tablet AM EDT [facility]) Macrobid 100MG Oral 07/25/2019 12:00:00 G REENWAY ([place] Capsule AM EST [facility]) Simvastatin 10 MG Oral 07/25/2019 12:00:00 KEYON ([place] Tablet [facility]) Ibuprofen 400 MG Oral 07/15/2019 12:00:00 KEYON ([place] Tablet [facility]) Ventolin HFA 108 (90 07/15/2019 12:00:00 KEYON ([facility])MCG/ACT Inhalation AM EST [facility] [place]) Ventolin HFA 108 (90 07/15/2019 12:00:00 KEYON ([facility])MCG/ACT Inhalation AM EST [facility] [place]) Ventolin HFA 108 (90 05/10/2018 12:00:00 KEYON ([facility])MCG/ACT Inhalation AM EST [facility] [place])
[2020-03-27] MEDS ORDERED: ACETAMINOPHEN 1000 MG/100 ML VIAL (NON FORMULARY) IVPB ONE (16:33)
[2020-03-27] MEDS: ALBUTEROL SO4 0.083% IH SOL 2.5 MG/3 ML VIAL.NEB. NEB SCH ×4 (16:55→17:31)
--- NOTE | 2020-03-27 17:03 | PDOC ---
History of Present Illness - General Chief Complaint: Chest Pain Stated Complaint: PAIN Time Seen by Provider: 03/27/20 15:50 History Source: Patient, Family Exam Limitations: No Limitations - History of Present Illness Initial Comments: 03/27/20 16:59 44 y.o. F no significant PMHx presenting due to chest pain. Patient states she started to feel a chest pain located on the L side that radiates to her back. The pain has been constant and is progressing worse over the past few days. Patient states she has also been feeling more tired than usual, has nasal congestion and an episode of sweating last night when she went to bed. Patient denies any headache, fever, chills, nausea, vomiting, myalgias, sob. Patient states she has not taken any medication or had any changes from her normal routine. PMHx: [facility] Meds: In Chart Allergies: NKA 03/27/20 17:06 Is this a multiple visit Asthma Patient?: No Timing/Duration: constant Severity: moderate Past History - Medical History Allergies/Adverse Reactions: Allergies Allergy/AdvReac Type Severity Reaction Status Date / Time No Known Allergies Allergy Verified 11/01/16 07:35 Home Medications: Ambulatory Orders Ibuprofen [Advil -] 200 mg PO QID 01/08/18 Ketotifen Fumarate [Zaditor] 5 ml OP BID 5 Days #1 bottle 01/08/18 Sumatriptan Succinate [Imitrex] 25 mg PO TID PRN #12 tablet 01/08/18 Prednisone [Prednisone 50 MG TABLETS] 50 mg PO DAILY 4 Days #4 tablet 03/27/20 COPD: No - Surgical History Abdominal Surgery: Yes - Reproductive History Is Patient Now?: No - Psycho-Social/Smoking History Smoking History: Never smoked Have you smoked in the past 12 months: No - Substance Abuse Hx (Audit-C & DAST Scrn) How often the patient has a drink containing alcohol: Never Score: In Men: 4 or > Positive; In Women: 3 or > Positive: 0 Screen Result (Pos requires Nsg. Audit-10AR): Negative In the last yr the pt used illegal drug/Rx for NonMed reason: No Score: Yes response is considered Positive: 0 Screen Result (Positive result requires Nsg. DAST-10): Negative Review of Systems - Review of Systems Able to Perform ROS?: Yes Is the patient limited Belgian proficient: No Constitutional: Yes: Night Sweats. No: Chills, Fever HEENTM: Yes: Nose Congestion. No: Blurred Vision, Double Vision Respiratory: No: Cough, Shortness of Breath, Wheezing Cardiac (ROS): Yes: Chest Pain. No: Edema, Lightheadedness ABD/GI: No: Constipated, Diarrhea, Nausea, Vomiting : No: Burning, Dysuria Musculoskeletal: No: Back Pain, Joint Pain, Muscle Weakness Integumentary: No: Dryness, Erythema, Rash Neurological: No: Headache, Numbness Hematologic/Lymphatic: No: Easy Bleeding, Easy Bruising *Physical Exam - Vital Signs Last Vital Signs Temp Pulse Resp BP Pulse Ox 97.7 F 75 18 93/52 L 100 03/27/20 15:51 03/27/20 15:51 03/27/20 15:51 03/27/20 15:51 03/27/20 15:51 - Physical Exam General Appearance: Yes: Nourished, Appropriately Dressed. No: Apparent Distress Respiratory/Chest: positive: Lungs Clear, Normal Breath Sounds. negative: Chest Tender, Respiratory Distress, Accessory Muscle Use, Crackles, Rales, Stridor, Wheezing Cardiovascular: positive: Regular Rhythm, Regular Rate. negative: Edema, JVD, Murmur Gastrointestinal/Abdominal: positive: Normal Bowel Sounds, Flat, Soft. negative: Tender, Distended, Guarding, Rebound, Tenderness Musculoskeletal: positive: Normal Inspection. negative: CVA Tenderness Extremity: positive: Normal Inspection. negative: Tender, Swelling, Calf Tenderness, Erythema Integumentary: positive: Normal Color, Dry, Warm Neurologic: positive: Fully Oriented, Alert, Normal Mood/Affect, Normal Response ED Treatment Course - LABORATORY CBC & Chemistry Diagram: 03/27/20 17:10 03/27/20 17:10 Medical Decision Making - Medical Decision Making 03/27/20 17:10 44 y.o. F no significant PMHx presenting due to chest pain. DDx: DC, COVID, PE, URI Labs: WBC 6.5, EKG: Pending Dispo: Pending Sign out to Dr. Anderson 03/27/20 17:49 Discharge - Discharge Information Problems reviewed: Yes Clinical Impression/Diagnosis: Cough Chest pain Qualifiers: Chest pain type: unspecified Qualified Code(s): R07.9 - Chest pain, unspecified Condition: Improved Disposition: HOME - Additional Discharge Information Prescriptions: Prednisone [Prednisone 50 MG TABLETS] 50 mg PO DAILY 4 Days #4 tablet - Follow up/Referral - Patient Discharge Instructions Patient Printed Discharge Instructions: DI for Atypical Chest Pain Additional Instructions: Lo vieron en el departamento de emergencias por dolor en el pecho. Recibi tratamientos con inhalador. Erika anlisis de laboratorio y radiografa de trax no mostraron signos de infeccin o problemas asociados. Le administraron tratamientos respiratorios en el departamento de emergencias. Hemos enviado alen receta de prednisona a dumont farmacia; tmela segn lo prescrito. Lupe un seguimiento con dumont mdico de atencin primaria con respecto a dumont visita al departamento de emergencias. Recibir alen llamada en 1-3 lawson con los resultados de dumont prueba de covid / coronavirus. Si experimenta dolor de pecho profundo, dificultad para respirar, nuseas, vmitos, diarrea, fiebre o escalofros, regrese al departamento de emergencias o llame al 911. You were seen in the emergency department for chest pain. You received inhaler treatments. Your labs and chest x-ray showed no signs of infection or associated issues. You were given breathing treatments in the emergency department. We have sent a prescription for prednisone to your pharmacy - take as prescribed. Please follow up with your primary care doctor regarding your visit to the emergency department. You will receive a call in 1-3 days with the results of your covid/coronavirus test. If you experience profound chest pain, shortness of breath, nausea, vomiting, diarrhea, fever or chills please return to the emergency department or call 911. Print Language: [id number] - Post Discharge Activity
[2020-03-27] MEDS ORDERED: predniSONE 10 MG TABLET (UD) ONE (17:12)
[2020-03-27] MEDS ORDERED: ACETAMINOPHEN INJECTION 100 ML IVPB ONE (17:12)
[2020-03-27] MEDS ORDERED: ALBUTEROL SO4 0.083% IH SOL 2.5 MG/3 ML VIAL.NEB. NEB ONE (17:12)
[2020-03-27] MEDS ORDERED: predniSONE 20 MG TABLET (UD) ONE (17:14)
--- NOTE | 2020-03-27 17:26 | PDOC ---
Attending Attestation - Resident Resident Name: George Neff - ED Attending Attestation I have performed the following: I have examined & evaluated the patient, The case was reviewed & discussed with the resident, I agree w/resident's findings & plan, Exceptions are as noted - HPI HPI: 03/27/20 17:25 This 44 yo female has had 4 days of dry cough,chest pain ,fatigue and presents with scattered expiratory wheezing - Physicial Exam PE: 03/27/20 17:26 44 yo female p/w 4 days of cough head ncat neck supple lungs scant scattered wheezing cvs [id number] extremities no deformities, no edema abdomen no rebound skin warm and dry neuro axox3,ambulatory
[2020-03-27 17:32] LABS: BASO % 0.8 % (0-2.0); HEMATOCRIT 36.8 % (32.4-45.2); LYMPH % 21.4 % (8-40); MCH 34.5 pg (25.7-33.7); MCHC 35.4 g/dl (32.0-36.0); MEAN CELL VOLUME 97.4 fl (80-96); MEAN PLT VOLUME 7.8 fl (7.5-11.1); MONO % 6.9 % (3.8-10.2); NEUT % 60.9 % (42.8-82.8); PLATELET COUNT 309 K/MM3 (134-434); RBC 3.77 M/mm3 (3.60-5.2); RDW 12.7 % (11.6-15.6); WHITE BLOOD COUNT 6.5 K/mm3 (4.0-10.0)
--- NOTE | 2020-03-27 17:32 | PDOC ---
Documentation entered by Cee Mccain SCRIBE, acting as scribe for Tere Mora MD. Tere Mora MD: This documentation has been prepared by the [employer] Xhesika, SCRIBE, under my direction and personally reviewed by me in its entirety. I confirm that the documentation accurately reflects all work, treatment, procedures, and medical decision making performed by me. Attending Attestation - Resident Resident Name: George Neff - ED Attending Attestation I have performed the following: I have examined & evaluated the patient, The case was reviewed & discussed with the resident, I agree w/resident's findings & plan, Exceptions are as noted - HPI HPI: 03/27/20 17:24 The patient is a 44y/o F no pmh who presents to the ED for 4 days of chest pain. Pt describes her chest pain as constant, L sided pain that radiates to her back associated with diaphoresis last night. Patient states she has also been feeling more tired than usual and has been endorsing a dry cough. The patient denies shortness of breath, headache and dizziness. Denies fever, chills, nausea, vomiting, diarrhea and constipation. Denies dysuria, frequency, urgency and hematuria. Allergies: NKDA - Physicial Exam PE: 03/27/20 17:30 44 yo female p/w 4 days of cough head ncat neck supple lungs scant scattered wheezing cvs [id number] extremities no deformities, no edema abdomen no rebound skin warm and dry neuro axox3,ambulatory - Medical Decision Making 03/27/20 17:33 labs pending/cxr 03/27/20 18:51 labs reviewed and essentially unremarkable 03/27/20 19:34 cxr napd imp cough plan discharge home w steroids Discharge - Discharge Information Problems reviewed: Yes Clinical Impression/Diagnosis: Cough Chest pain Qualifiers: Chest pain type: unspecified Qualified Code(s): R07.9 - Chest pain, unspecified - Follow up/Referral - Patient Discharge Instructions Additional Instructions: You were seen in the emergency department for chest pain. You received inhaler treatments. Your labs and imaging showed no signs of infection or associated issues. You were given breathing treatments in the emergency department. Please follow up with your primary care doctor regarding your visit to the emergency department. If you experience profound chest pain, shortness of breath, nausea, vomiting, diarrhea, fever or chills please return to the emergency department or call 911. - Post Discharge Activity
[2020-03-27 17:37] LABS: INR 1.08 (0.83-1.09); PROTHROMBIN TIME (PATIENT) 12.7 SEC (9.7-13.0)
[2020-03-27 17:39] LABS: ACTIVATED PTT 33.2 SECONDS (25.2-36.5)
[2020-03-27 18:04] LABS: ALBUMIN 3.5 g/dl (3.4-5.0); ALK PHOS 90 U/L (45-117); ANION GAP 4 MMOL/L (8-16); BILIRUBIN,TOTAL 0.3 mg/dL (0.2-1); CALCIUM 8.7 mg/dL (8.5-10.1); CHLORIDE 104 mmol/L (98-107); CO2 29 mmol/L (21-32); CREATININE 0.7 mg/dL (0.55-1.3); GLUCOSE,RANDOM 83 mg/dL (74-106); N-TERMINAL BNP 28.3 pg/ml (5-125); POTASSIUM 4.3 mmol/L (3.5-5.1); SGOT/AST 38 U/L (15-37); SGPT/ALT 23 U/L (13-61); SODIUM 138 mmol/L (136-145); TOT PROT 7.5 g/dl (6.4-8.2)
[2020-03-27] MEDS ORDERED: predniSONE 20 MG TABLET (UD) PO ONE (19:30)
--- NOTE | 2020-03-27 19:36 | PDOC ---
*Physical Exam - Vital Signs Last Vital Signs Temp Pulse Resp BP Pulse Ox 97.7 F 75 18 93/52 L 100 03/27/20 15:51 03/27/20 15:51 03/27/20 15:51 03/27/20 15:51 03/27/20 15:51 ED Treatment Course - LABORATORY CBC & Chemistry Diagram: 03/27/20 17:10 03/27/20 17:10 - ADDITIONAL ORDERS Additional order review: Laboratory Results 03/27/20 03/27/20 17:10 17:10 PT with INR 12.70 INR 1.08 PTT (Actin FS) 33.2 Sodium 138 Potassium 4.3 Chloride 104 Carbon Dioxide 29 Anion Gap 4 L BUN 19.0 H Creatinine 0.7 Est GFR (CKD-EPI)AfAm 122.99 Est GFR (CKD-EPI)NonAf 106.12 Random Glucose 83 Calcium 8.7 Total Bilirubin 0.3 AST 38 H ALT 23 Alkaline Phosphatase 90 Creatine Kinase 342 H Creatine Kinase Index 0.5 CK-MB (CK-2) 2.0 Troponin I < 0.02 B-Natriuretic Peptide 28.3 Total Protein 7.5 Albumin 3.5 03/27/20 17:10 RBC 3.77 MCV 97.4 H MCHC 35.4 RDW 12.7 MPV 7.8 Neutrophils % 60.9 Lymphocytes % 21.4 Monocytes % 6.9 Eosinophils % 10.0 H Basophils % 0.8 - Medications Given in the ED: ED Medications Discontinued Medications Generic Name Dose Route Start Last Admin Trade Name Freq PRN Reason Stop Dose Admin Acetaminophen 1,000 mg 03/27/20 16:33 03/27/20 17:30 Ofirmev Injection - IVPB 03/27/20 16:34 1,000 mg ONCE ONE Administration Albuterol Sulfate 1 amp 03/27/20 17:00 03/27/20 17:31 Ventolin 0.083% Nebulizer Soln - NEB 03/27/20 17:46 1 amp Q15M HARJEET Administration Medical Decision Making - Medical Decision Making 03/27/20 19:31 CXR reviewed: no acute pathology EKG reviewed: NSR, 67bpm, normal axis, normal intervals, no e/o acute ischemia Labs reviewed. No concerning findings. Pt feels better s/p treatments but chest pain still there. Pt concerned about breast, had minor surgery for abnormal mammogram couple years ago. Instructed to f/u with PCP for f/u mammogram if indicated per PCP. Will d/c home with prednisone and PCP f/u. Discharge - Discharge Information Problems reviewed: Yes Clinical Impression/Diagnosis: Cough Chest pain Qualifiers: Chest pain type: unspecified Qualified Code(s): R07.9 - Chest pain, unspecified Condition: Improved Disposition: HOME - Admission No - Additional Discharge Information Prescriptions: Prednisone [Prednisone 50 MG TABLETS] 50 mg PO DAILY 4 Days #4 tablet - Follow up/Referral - Patient Discharge Instructions Patient Printed Discharge Instructions: DI for Atypical Chest Pain Additional Instructions: Lo vieron en el departamento de emergencias por dolor en el pecho. Recibi tratamientos con inhalador. Erika anlisis de laboratorio y radiografa de trax no mostraron signos de infeccin o problemas asociados. Le administraron tratamientos respiratorios en el departamento de emergencias. Hemos enviado alen receta de prednisona a dumont farmacia; tmela segn lo prescrito. Lupe un seguimiento con dumont mdico de atencin primaria con respecto a dumont visita al departamento de emergencias. Recibir alen llamada en 1-3 lawson con los resultados de dumont prueba de covid / coronavirus. Si experimenta dolor de pecho profundo, dificultad para respirar, nuseas, vmitos, diarrea, fiebre o escalofros, regrese al departamento de emergencias o llame al 911. You were seen in the emergency department for chest pain. You received inhaler treatments. Your labs and chest x-ray showed no signs of infection or associated issues. You were given breathing treatments in the emergency department. We have sent a prescription for prednisone to your pharmacy - take as prescribed. Please follow up with your primary care doctor regarding your visit to the emergency department. You will receive a call in 1-3 days with the results of your covid/coronavirus test. If you experience profound chest pain, shortness of breath, nausea, vomiting, diarrhea, fever or chills please return to the emergency department or call 911. Print Language: ITALIAN - Post Discharge Activity
--- NOTE | 2020-03-28 09:52 | EKG ---
Test Reason : Blood Pressure : / mmHG Vent. Rate : 067 BPM Atrial Rate : 067 BPM P-R Int : 166 ms QRS Dur : 086 ms QT Int : 396 ms P-R-T Axes : 023 -04 039 degrees QTc Int : 418 ms NORMAL SINUS RHYTHM NORMAL ECG NO PREVIOUS ECGS AVAILABLE Confirmed by MD Jae, Celestine ([id number]) on 03/28/2020 9:51:40 AM Referred By: Confirmed By:Celestine Rowe MD
[2020-03-28] MEDS ORDERED: predniSONE 20 MG TABLET (UD) PO ONE (16:52)
== END 2020-03-27 20:33 | disposition home or self-care (01) ==
LOC: JER 15:48
PROC: 3E0333Z Introduction of Anti-inflammatory into Peripheral Vein, Percutaneous Approach (ICD-10-PCS; principal; 2020-03-27)
PROC: 3E0F7GC Introduction of Other Therapeutic Substance into Respiratory Tract, Via Natural or Artificial Opening (ICD-10-PCS; 2020-03-27)
DX: R05 Cough (principal); R07.9 Chest pain, unspecified
CPT/HCPCS: 36415; 71046-TC-FY; 80053; 82550; 82553; 83880; 84484; 84703; 85025; 85610; 85730; 93005; 93010; 99285-25; C9803; J0131; U0003

== ENCOUNTER 2022-05-04 12:25 | Emergency (ER) | payer OTHER ==
[2022-05-04 12:39] VITALS: BP 103/62; PULSE 75; RESP 18; TEMP 97; BMI 23.0
[2022-05-04] MEDS ORDERED: SODIUM CHLORIDE 0.9% 500 ML INFUS.BAG IV ONE (12:58)
[2022-05-04] MEDS ORDERED: KETOROLAC TROMETHAMINE 30 MG/1 ML VIAL IVPUSH ONE (12:58)
[2022-05-04] MEDS ORDERED: KETOROLAC TROMETHAMINE 30 MG/1 ML VIAL ONE (13:04)
[2022-05-04 13:17] LABS: HEMOGLOBIN 12.6 GM/dL (10.7-15.3); MCH 32.3 pg (25.7-33.7); MCHC 34.1 g/dl (32.0-36.0); MEAN CELL VOLUME 94.7 fl (80-96); MEAN PLT VOLUME 7.1 fl (7.5-11.1); PLATELET COUNT 354 10^3/uL (134-434); RBC 3.91 M/mm3 (3.60-5.2); WHITE BLOOD COUNT 5.5 K/mm3 (4.0-10.0)
[2022-05-04 13:23] LABS: EPI CELLS 4 /uL (0-25.1); HCG,QUALITATIVE URINE Negative; HYALINE CASTS 0 /uL (0-3.1); URINE APPEARANCE CLEAR; URINE BACTERIA 2 /uL (0-1359); URINE BILIRUBIN NEGATIVE (NEGATIVE); URINE COLOR YELLOW; URINE GLUCOSE (UA) NEGATIVE (NEGATIVE); URINE KETONE NEGATIVE (NEGATIVE); URINE LEUK ESTERASE NEGATIVE (NEGATIVE); URINE NITRITE NEGATIVE (NEGATIVE); URINE PROTEIN NEGATIVE (NEGATIVE); URINE RBC 25 /uL (0-23.9); URINE UROBILINOGEN 0.2 mg/dL (0.2-1.0); URINE WBC 2 /uL (0-25.8)
[2022-05-04 13:47] LABS: CHLORIDE 106 mmol/L (98-107); SODIUM 135 mmol/L (136-145)
[2022-05-04 13:48] LABS: ALBUMIN 3.9 g/dl (3.4-5.0); BLOOD UREA NITROGEN 18.4 mg/dL (7-18); CO2 28 mmol/L (21-32); GLUCOSE,RANDOM 86 mg/dL (74-106)
[2022-05-04 13:51] LABS: CREATININE 0.7 mg/dL (0.55-1.3)
[2022-05-04 13:53] LABS: SGOT/AST 64 U/L (15-37)
[2022-05-04 13:54] LABS: ALK PHOS 108 U/L (45-117); BILIRUBIN,TOTAL 0.3 mg/dL (0.2-1); TOT PROT 8.3 g/dl (6.4-8.2)
[2022-05-04 14:06] LABS: ANION GAP 2 MMOL/L (8-16); SGPT/ALT 25 U/L (13-61)
[2022-05-04] MEDS ORDERED: valACYclovir HCL 1000 MG TABLET PO ONE (14:24)
[2022-05-04 15:11] LABS: CALCIUM 8.5 mg/dL (8.5-10.1)
[2022-05-04 15:13] LABS: BLOOD UREA NITROGEN 16.7 mg/dL (7-18)
[2022-05-04 15:15] LABS: CREATININE 0.6 mg/dL (0.55-1.3)
== END 2022-05-04 15:36 | disposition home or self-care (01) ==
LOC: JERFT 12:25
PROC: 3E0233Z Introduction of Anti-inflammatory into Muscle, Percutaneous Approach (ICD-10-PCS; principal; 2022-05-04)
DX: B02.9 Zoster without complications (principal)
CPT/HCPCS: 36415; 80048; 80053; 81003; 84702; 84703; 85027; 87086; 99284-25

== ENCOUNTER 2022-06-02 09:17 | Emergency (ER) | payer OTHER ==
[2022-06-02 09:35] VITALS: BP 112/54; PULSE 74; RESP 18; TEMP 97.9; BMI 22.4
[2022-06-02] MEDS ORDERED: ACETAMINOPHEN 325 MG TABLET (FP) PO ONE (09:59)
== END 2022-06-02 11:12 | disposition home or self-care (01) ==
LOC: JER 09:17
DX: J06.9 Acute upper respiratory infection, unspecified (principal)
CPT/HCPCS: 0241U-QW; 99283-25

== ENCOUNTER 2023-05-29 15:16 | Emergency (ER) | payer OTHER ==
[2023-05-29 15:26] VITALS: BP 102/61; PULSE 80; RESP 18; TEMP 97.6; BMI 23.0
== END 2023-05-29 17:18 | disposition home or self-care (01) ==
LOC: JER 15:16
DX: Z03.89 Encounter for observation for other suspected diseases and conditions ruled out (principal); N93.9 Abnormal uterine and vaginal bleeding, unspecified
CPT/HCPCS: 99283-25; 99284-25

== ENCOUNTER 2023-11-01 20:03 | Emergency (ER) | payer OTHER ==
[2023-11-01 20:12] VITALS: RESP 20; TEMP 98.3; BMI 23.0
[2023-11-01] MEDS ORDERED: predniSONE 20 MG TABLET (UD) PO ONE (20:43)
[2023-11-01] MEDS ORDERED: ALBUTEROL SO4 2.5/IPRATROPIUM 0.5 INH SOL 3 ML VIAL.NEB. NEB ONE (20:53)
[2023-11-01] MEDS ORDERED: predniSONE 20 MG TABLET (UD) ONE (20:53)
[2023-11-01] MEDS: predniSONE 20 MG TABLET (UD) PO ONE (21:02)
[2023-11-01] MEDS: ALBUTEROL SO4 2.5/IPRATROPIUM 0.5 INH SOL 3 ML VIAL.NEB. NEB SCH (21:02)
[2023-11-01 22:14] VITALS: BP 108/70; PULSE 99
== END 2023-11-01 22:45 | disposition home or self-care (01) ==
LOC: JER 20:03
PROC: 3E0F7GC Introduction of Other Therapeutic Substance into Respiratory Tract, Via Natural or Artificial Opening (ICD-10-PCS; principal; 2023-11-01)
DX: R05.9 Cough, unspecified (principal); R06.02 Shortness of breath; J45.901 Unspecified asthma with (acute) exacerbation; Z20.822 Contact with and (suspected) exposure to COVID-19
CPT/HCPCS: 0241U-QW; 71046-TC-FY; 99284-25